=== PATIENT | male | born 1980 | race Caucasian/White ===

== ENCOUNTER 2021-11-07 11:28 | Inpatient (IN) | payer OTHER ==
[2021-11-07] MEDS ORDERED: MAGNESIUM HYDROX 2400MG/30ML ORAL SUSPENSION 30 ML CUP PO PRN (12:29)
[2021-11-07] MEDS ORDERED: ACETAMINOPHEN 325 MG TABLET (FP) PO PRN ×2 (12:29)
[2021-11-07] MEDS ORDERED: LORazepam 1 MG TABLET PO PRN (12:29)
[2021-11-07] MEDS ORDERED: MAGNESIUM CITRATE 300 ML BOTTLE PO PRN (12:29)
[2021-11-07] MEDS ORDERED: cloNIDine HCL 0.1 MG TABLET PO ONE (12:29)
[2021-11-07] MEDS ORDERED: BUPRENORPHINE HCL 150 MCG, BUPRENORPHINE HCL 75 MCG BC ONE (12:29)
[2021-11-07] MEDS ORDERED: NICOTINE 10 MG CARTRIDGE (INHALER) IH PRN (12:29)
[2021-11-07] MEDS ORDERED: MENTHOL/PHENOL 1 EACH UD MM PRN (12:29)
[2021-11-07] MEDS ORDERED: IBUPROFEN 400 MG TABLET (FP) PO PRN (12:29)
[2021-11-07] MEDS ORDERED: MAG HYDROX/AL HYDROX/SIMETH 30 ML UNIT-DOSE CUP PO PRN (12:29)
[2021-11-07] MEDS ORDERED: diazePAM 5 MG TABLET PO PRN (12:29)
[2021-11-07] MEDS ORDERED: BISMUTH SUBSALICYLATE 262 MG/15 ML BTL PO PRN (12:29)
[2021-11-07] MEDS ORDERED: LOPERAMIDE HCL 2 MG CAPSULE PO PRN (12:29)
[2021-11-07] MEDS ORDERED: ONDANSETRON *ODT* 4 MG TABLET SL PRN (12:29)
[2021-11-07 12:56] VITALS: BMI 29.1
[2021-11-07] MEDS ORDERED: methaDONE HCL 10 MG TABLET (FOR DETOX USE ONLY) PO ONE (13:45)
[2021-11-07] MEDS ORDERED: cloNIDine HCL 0.1 MG TABLET PO PRN ×2 (13:45→16:29)
[2021-11-07] MEDS: hydrOXYzine PAMOATE 25 MG CAPSULE (FP) PO SCH ×3 (14:35→22:43)
[2021-11-07] MEDS: PRENATAL VITAMINS W/ FOLIC ACID TABLET (FP) PO SCH (14:36)
[2021-11-07] MEDS: LORazepam 2 MG TABLET PO SCH ×3 (14:36→22:43)
[2021-11-07] MEDS: NICOTINE 14 MG/24 HOURS TOPICAL PATCH TD SCH (14:36)
[2021-11-07] MEDS: METHOCARBAMOL 500 MG TABLET PO PRN (14:38)
[2021-11-07 17:27] LABS: HEMATOCRIT 43.5 % (35.4-49); HEMOGLOBIN 14.6 GM/dL (11.7-16.9); MCH 29.3 pg (25.7-33.7); MCHC 33.6 g/dl (32.0-35.9); MEAN CELL VOLUME 87.1 fl (80-96); MEAN PLT VOLUME 10.5 fl (7.5-11.1); PLATELET COUNT 226 10^3/uL (134-434); RDW 14.5 % (11.9-15.9); WHITE BLOOD COUNT 10.2 K/mm3 (4.0-10.0)
[2021-11-07 17:30] LABS: ALBUMIN 4.3 g/dl (3.4-5.0); BLOOD UREA NITROGEN 17.5 mg/dL (7-18)
[2021-11-07 17:33] LABS: CREATININE 0.9 mg/dL (0.55-1.3)
[2021-11-07 17:35] LABS: BILIRUBIN,TOTAL 0.5 mg/dL (0.2-1); TOT PROT 7.3 g/dl (6.4-8.2)
[2021-11-07] MEDS ORDERED: MELATONIN 5 MG TABLETS PO SCH (22:00)
[2021-11-07] MEDS: THIAMINE HCL 100 MG TABLET (FP) PO SCH (22:43)
[2021-11-07] MEDS: SUVOREXANT 10 MG TABLET PO PRN (22:47)
[2021-11-08] MEDS: LORazepam 2 MG TABLET PO SCH ×4 (05:32→22:18)
[2021-11-08] MEDS: hydrOXYzine PAMOATE 25 MG CAPSULE (FP) PO SCH ×5 (05:32→22:18)
[2021-11-08] MEDS ORDERED: BUPRENORPHINE HCL 150 MCG, BUPRENORPHINE HCL 75 MCG BC SCH (06:00)
[2021-11-08] MEDS ORDERED: methaDONE HCL 10 MG TABLET (FOR DETOX USE ONLY) ONE (09:13)
[2021-11-08] MEDS: PRENATAL VITAMINS W/ FOLIC ACID TABLET (FP) PO SCH (10:19)
[2021-11-08] MEDS: NICOTINE 14 MG/24 HOURS TOPICAL PATCH TD SCH (10:19)
[2021-11-08] MEDS: THIAMINE HCL 100 MG TABLET (FP) PO SCH (22:18)
[2021-11-08] MEDS: SUVOREXANT 10 MG TABLET PO PRN (22:21)
[2021-11-09] MEDS: LORazepam 1 MG TABLET PO SCH ×4 (05:36→22:22)
[2021-11-09] MEDS: hydrOXYzine PAMOATE 25 MG CAPSULE (FP) PO SCH ×5 (05:36→22:22)
[2021-11-09] MEDS ORDERED: BUPRENORPHINE HCL 450 MCG FILM BC SCH (06:00)
[2021-11-09] MEDS ORDERED: methaDONE HCL 10 MG TABLET (FOR DETOX USE ONLY) PO ONE (10:00)
[2021-11-09] MEDS: NICOTINE 14 MG/24 HOURS TOPICAL PATCH TD SCH (10:38)
[2021-11-09] MEDS: METHOCARBAMOL 500 MG TABLET PO PRN (10:39)
[2021-11-09] MEDS: PRENATAL VITAMINS W/ FOLIC ACID TABLET (FP) PO SCH (10:39)
[2021-11-09 14:08] LABS: SARS-CoV-2 NAA Not Detected (Not Detected)
[2021-11-09] MEDS: SUVOREXANT 10 MG TABLET PO PRN (22:22)
[2021-11-09] MEDS: THIAMINE HCL 100 MG TABLET (FP) PO SCH (22:22)
[2021-11-10] MEDS ORDERED: LORazepam 0.5 MG TABLET PO PRN
[2021-11-10] MEDS ORDERED: BUPRENORPHINE/NALOXONE 4 MG/1 MG FILM PACKET SL SCH (06:00)
[2021-11-10] MEDS: LORazepam 0.5 MG TABLET PO SCH ×4 (06:21→22:14)
[2021-11-10] MEDS: hydrOXYzine PAMOATE 25 MG CAPSULE (FP) PO SCH ×5 (06:21→22:13)
[2021-11-10] MEDS ORDERED: methaDONE HCL 10 MG TABLET (FOR DETOX USE ONLY) ONE (09:14)
[2021-11-10] MEDS: METHOCARBAMOL 500 MG TABLET PO PRN (11:01)
[2021-11-10] MEDS: PRENATAL VITAMINS W/ FOLIC ACID TABLET (FP) PO SCH (11:01)
[2021-11-10] MEDS: NICOTINE 14 MG/24 HOURS TOPICAL PATCH TD SCH (11:02)
[2021-11-10] MEDS: THIAMINE HCL 100 MG TABLET (FP) PO SCH (22:13)
[2021-11-10] MEDS: SUVOREXANT 10 MG TABLET PO PRN (22:13)
[2021-11-11] MEDS ORDERED: LORazepam 0.5 MG TABLET PO ONE (05:00)
[2021-11-11] MEDS: hydrOXYzine PAMOATE 25 MG CAPSULE (FP) PO SCH ×5 (05:26→22:41)
[2021-11-11] MEDS ORDERED: BUPRENORPHINE/NALOXONE 8 MG/2 MG FILM PACKET SL ONE (06:00)
[2021-11-11] MEDS ORDERED: methaDONE HCL 10 MG TABLET (FOR DETOX USE ONLY) PO ONE (10:00)
[2021-11-11] MEDS: PRENATAL VITAMINS W/ FOLIC ACID TABLET (FP) PO SCH (10:58)
[2021-11-11] MEDS: NICOTINE 14 MG/24 HOURS TOPICAL PATCH TD SCH (10:58)
[2021-11-11] MEDS: METHOCARBAMOL 500 MG TABLET PO PRN (22:39)
[2021-11-11] MEDS: THIAMINE HCL 100 MG TABLET (FP) PO SCH (22:39)
[2021-11-11] MEDS: SUVOREXANT 10 MG TABLET PO PRN (22:41)
[2021-11-12] MEDS: hydrOXYzine PAMOATE 25 MG CAPSULE (FP) PO SCH ×3 (06:35→15:07)
[2021-11-12] MEDS: PRENATAL VITAMINS W/ FOLIC ACID TABLET (FP) PO SCH (11:10)
[2021-11-12] MEDS: METHOCARBAMOL 500 MG TABLET PO PRN (11:10)
[2021-11-12] MEDS: NICOTINE 14 MG/24 HOURS TOPICAL PATCH TD SCH (11:10)
[2021-11-12 12:43] VITALS: BP 114/85; PULSE 67; TEMP 97.5
== END 2021-11-12 15:10 | disposition home or self-care (01) | DRG 773 ==
LOC: YASAS 11:28 → Y6N 13:30
PROVIDERS: ADMIT Allergy & Immunology; ATTEND Allergy & Immunology
PROC: HZ2ZZZZ Detoxification Services for Substance Abuse Treatment (ICD-10-PCS; principal; 2021-11-07)
DX: F11.23 Opioid dependence with withdrawal (principal); F13.230 Sedative, hypnotic or anxiolytic dependence with withdrawal, uncomplicated; F12.20 Cannabis dependence, uncomplicated; F17.210 Nicotine dependence, cigarettes, uncomplicated; F19.280 Other psychoactive substance dependence with psychoactive substance-induced anxiety disorder; F19.282 Other psychoactive substance dependence with psychoactive substance-induced sleep disorder; M51.37 Other intervertebral disc degeneration, lumbosacral region; R76.11 Nonspecific reaction to tuberculin skin test without active tuberculosis
CPT/HCPCS: 36415; 71046-TC-FY; 80053; 82962; 85027; 86780; C9803; J0735; Q0162; U0003; U0005